=== PATIENT | male | born 1945 | race Caucasian/White ===

== ENCOUNTER → 2018-01-18 13:24 | Outpatient (CLI) | payer MEDICARE, BC, SELFPAY ==
--- NOTE | 2018-01-18 13:24 | DT_ITS ---
This patient was seen during an EMR downtime January 14, 2018 - January 21, 2018. This patient may have a combination of paper and electronic documentation or all paper documentation. All documentation is viewable within the e-chart portion of [facility] for each patient visit.
--- NOTE | 2018-01-18 13:32 | CT_ITS ---
STUDY: CT CHEST WITHOUT CONTRAST REASON FOR EXAM: Male, 72 years old. Screening. RADIATION DOSAGE (If Supplied By Facility): CTDIvol = ( 12.19 ) mGy, DLP = ( 219.42 ) mGycm TECHNIQUE: Transaxial imaging was performed without the administration of intravenous contrast material. Individualized dose optimization techniques were used for this CT. COMPARISON: None. FINDINGS: There is a 4 mm calcified granuloma in the medial right lung base. A 2 mm calcified granuloma as well as a 4 mm granuloma are seen in the right middle lobe. The lungs appear otherwise clear. There is no demonstrated pleural abnormality. Normal heart and pericardium. There are coronary artery calcifications. Calcified lymph nodes in the right hilum and as ago esophageal space. Normal hilar regions. Normal unenhanced pulmonary arteries. There is atherosclerotic calcification of the aortic arch with tortuosity and elongation of the aortic arch and descending thoracic aorta. There are mild degenerative changes of the thoracic spine. There is no demonstrated abnormality of the visualized upper abdomen. CT/CCTA Calcium Scoring IMPRESSION: 1. Atherosclerotic changes of the coronary arteries and thoracic aorta. 2. Old granulomatous disease. Electronically Signed: Jayme Hensley DO at 10:47 EDT Tel [phone], Service support ,
--- NOTE | 2018-01-18 13:46 | CT_ITS ---
STUDY: CT CHEST WITHOUT CONTRAST REASON FOR EXAM: Male, 72 years old. Screening. RADIATION DOSAGE (If Supplied By Facility): CTDIvol = ( 12.19 ) mGy, DLP = ( 219.42 ) mGycm TECHNIQUE: Transaxial imaging was performed without the administration of intravenous contrast material. Individualized dose optimization techniques were used for this CT. COMPARISON: None. FINDINGS: There is a 4 mm calcified granuloma in the medial right lung base. A 2 mm calcified granuloma as well as a 4 mm granuloma are seen in the right middle lobe. The lungs appear otherwise clear. There is no demonstrated pleural abnormality. Normal heart and pericardium. There are coronary artery calcifications. Calcified lymph nodes in the right hilum and as ago esophageal space. Normal hilar regions. Normal unenhanced pulmonary arteries. There is atherosclerotic calcification of the aortic arch with tortuosity and elongation of the aortic arch and descending thoracic aorta. There are mild degenerative changes of the thoracic spine. There is no demonstrated abnormality of the visualized upper abdomen. CT/Limited Chest CT w/CCTA IMPRESSION: 1. Atherosclerotic changes of the coronary arteries and thoracic aorta. 2. Old granulomatous disease. Electronically Signed: Jayme Hensley DO at 10:47 EDT Tel [phone], Service support ,
--- NOTE | 2018-01-21 17:46 | CA.SCORE ---
Calcium Scoring Date of Study:: 01/18/18 Coronary Calcium Scoring: High-resolution computed tomographic imaging of the chest was performed on 01/18/2018 with particular attention paid to the coronary arteries. Images from the examination were analyzed for the presence and extent of coronary artery calcification using the coronary calcium quantification software. The patient tolerated the procedure well. Review of the scores demonstrated evidence of calcification noted in the left main coronary artery, left anterior descending artery, left circumflex artery, and the right coronary artery. The total [place] score was noted to be 1494. This places the patient at greater than 75% tile ranking suggesting extensive plaque burden and a high likelihood of at least one coronary artery vessel having a significant stenosis more than 50% in diameter. Conclusion: Extensive coronary calcification with high plaque burden.
== END ==
PROVIDERS: Family Provider Internal Medicine; PCP Internal Medicine; Visit Provider Internal Medicine
DX: E78.5 Hyperlipidemia, unspecified (principal)
CPT/HCPCS: 75571; 76380

== ENCOUNTER → 2018-01-31 12:48 | Outpatient (CLI) | payer MEDICARE, BC, SELFPAY ==
--- NOTE | 2018-01-31 12:55 | BD_ITS ---
STUDY: DUAL ENERGY X-RAY ABSORPTIOMETRY / DXA REASON FOR EXAM: Male, 72 years old. Long-term use of prednisone. Loss of height. TECHNIQUE: Bone Mineral Density (BMD) measurements of lumbar spine and bilateral hips were obtained. COMPARISON: Comparison is made with prior study dated May 25, 2015. FINDINGS: Lumbar Spine (L1-L4): g/cm2 (1.313) / T-score (0.9) / Z-score (1.5) Findings are suggestive of normal bone density with a low fracture risk. Left Femur Total: g/cm2 (1.027) / T-score (-0.5) / Z-score (0.3) Left Femoral Neck: g/cm2 (0.920) / T-score (-1.2) / Z-score (0.2) Right Femur Total: g/cm2 (0.963) / T-score (-1.0) / Z-score (-0.1) Right Femoral Neck: g/cm2 (0.928) / T-score (-1.1) / Z-score (0.3) The T-Scores on the most recent prior examination were: Lumbar Spine (L1-L4): There has been worsening of bone density since the previous examination. Left Femur Total: which represents an improvement of 1.2%. Right Femur Total: which represents a worsening of 2.2%. BD/Dexa Bone Density Study IMPRESSION: The patient is considered osteopenic as outlined below according to World [place] Organization (WHO) criteria with a moderate fracture risk. There has been worsening of bone density since the previous examination. Reference Information: The T-score is the number of standard deviations above or below the standard which is normal for young adults at their peak bone mineral density. The World Health Organization (WHO) interprets the T-scores as follows: Above -1 Normal bone density Between -1 and -2.5 Osteopenia Equal to / or below -2.5 Osteoporosis As a practical clinical guideline, osteopenia may be graded as follows: Mild -1 through -1.5 Moderate -1.6 through -2.0 Severe -2.1 through -2.4 The Z-score is the number of standard deviations above or below age-matched controls. A Z-score of less than -1.5 would be considered abnormal. References: 1. NIH Osteoporosis and Related Bone Diseases http://www.osteo.org 2. International Society for Clinical Densitometry http://www.iscd.org 3. National Osteoporosis Foundation http://www.nof.org Electronically Signed: Lam Bills MD at 9:58 EDT Tel [phone], Service support ,
== END ==
PROVIDERS: Family Provider Internal Medicine; PCP Internal Medicine; Visit Provider Internal Medicine
DX: Z79.52 Long term (current) use of systemic steroids (principal)
CPT/HCPCS: 77080

== ENCOUNTER → 2018-02-18 06:47 | Outpatient (CLI) | payer MEDICARE, BC, SELFPAY ==
--- NOTE | 2018-02-18 10:02 | STRESSREP ---
Stress Test Report Exercise myocardial perfusion stress test. 73-year-old man with a history of chest pain. Medications: Crestor prednisone losartan amlodipine and aspirin. Stress protocol: Resting EKG demonstrates sinus rhythm with a rate of 61 bpm normal intervals are noted. The patient exercised according to the regular Johan protocol for a total duration of 6 minutes and 30 seconds the maximum heart rate attained was 7 37 bpm which was 93% of maximum predicted heart rate the maximum workload was 7.7 metabolic equivalents. Patient maintained sinus rhythm throughout the recording. Upsloping ST EKG changes only were noted with no meet the criteria for ischemia. The resting blood pressure is 132/80 with a peak blood pressure 190/70 mmHg. No clinical angina was noted the rate pressure product was 20,400. Myocardial perfusion protocol. 11.5 mCi of technetium 99m sestamibi was injected at rest. Patient exercised according to regular Johan protocol for 6 minutes and 30 seconds attaining 93% of maximum predicted heart rate workload of 7.7 metabolic equivalents. At peak exercise 34.1 mCi of technetium 99m sestamibi was injected stress images were obtained stress and rest images were reconstructed and compared in the short axis vertical long and horizontal long axis. Gated images were also obtained pre- Perfusion SPECT analysis: Review of the stress images demonstrate normal uptake of tracer noted in all areas of the myocardium. The resting images similarly demonstrate normal uptake of tracer noted in all areas of the myocardium. No areas of reversibility are noted to suggest ischemia no previous infarct is noted. Gated SPECT analysis: The gated ejection fraction is 59%. Conclusion: Normal exercise myocardial perfusion stress test at a moderate workload. Preserved ejection fraction.
== END ==
PROVIDERS: Family Provider Internal Medicine; PCP Internal Medicine; Visit Provider Internal Medicine
DX: I25.10 Atherosclerotic heart disease of native coronary artery without angina pectoris (principal)
CPT/HCPCS: 78452; 93017; A9500; A4216

== ENCOUNTER → 2018-04-23 10:06 | Outpatient (CLI) | payer MEDICARE, BC, SELFPAY ==
[2018-04-23 10:36] LABS: PSA,Total - Annual Screen < 0.01 ng/mL (0.00-4.00)
== END ==
PROVIDERS: Family Provider Internal Medicine; PCP Internal Medicine; Visit Provider Internal Medicine
DX: Z12.5 Encounter for screening for malignant neoplasm of prostate (principal)
CPT/HCPCS: 36415; 84153; G0103

== ENCOUNTER → 2018-12-23 09:33 | Outpatient (CLI) | payer MEDICARE, BC, SELFPAY ==
--- NOTE | 2018-12-23 10:16 | VDLE_ITS ---
Reason For Study: SWELLING RIGHT LEFT CFV is compressible, spontaneous, phasic, GSV is normal. competent and demonstrates normal CFV is compressible, spontaneous, phasic, augmentation. competent, and demonstrates normal Procedure augmentation. Exam performed in department. FV is compressible, spontaneous, phasic, A preliminary report was called and/or faxed competent and demonstrates normal to Dr Craven. augmentation. POP V is compressible, spontaneous, phasic, competent and demonstrates normal augmentation. T/P Trunk is compressible. PTV is compressible. LT PerV is compressible. Left Gastroc V is NONCOMPRESSIBLE and does not fill with color. Interpretation Summary Acute deep vein thrombosis is noted in the left gastrocnemius vein. The remainder of the left lower extremity deep venous system is patent and compressible. Valvular competence appears intact within the proximal deep venous system on the left . The left greater saphenous vein appears patent and compressible segmentally. Ordering Physician: Kendra Craven Referring Physician: Kendra Craven Performed By: Mallory Gage, ROSALIACS, RVT
== END ==
PROVIDERS: Family Provider Internal Medicine; PCP Internal Medicine; Referring Provider Internal Medicine; Visit Provider Internal Medicine
DX: M79.89 Other specified soft tissue disorders (principal); R42 Dizziness and giddiness
CPT/HCPCS: 93225; 93226; 93971

== ENCOUNTER → 2020-02-05 12:01 | Outpatient (CLI) | payer MEDICARE, BC, SELFPAY ==
--- NOTE | 2020-02-05 12:14 | BD_ITS ---
STUDY: DUAL ENERGY X-RAY ABSORPTIOMETRY / DXA REASON FOR EXAM: Male, 74 years old. Unsure of age of silvio. Pat is 195.3# and 6''1 and quot; a loss of 1.5 and quot; per pat. Past hx of using Fosomax. Uses 10mg of prednisone. Does not exercise. Hx of left humerus and jn clavicle fx. TECHNIQUE: Bone Mineral Density (BMD) measurements of lumbar spine and bilateral hips were obtained. COMPARISON: Comparison is made with prior study dated January 31, 2018. FINDINGS: Lumbar Spine (L1-L4): g/cm2 (1.294) / T-score (0.8) / Z-score (1.4) Findings are suggestive of normal bone density with a low fracture risk. Left Femur Total: g/cm2 (1.000) / T-score (-0.7) / Z-score (0.2) Left Femoral Neck: g/cm2 (0.902) / T-score (-1.3) / Z-score (0.1) Right Femur Total: g/cm2 (0.933) / T-score (-1.2) / Z-score (-0.2) Right Femoral Neck: g/cm2 (0.897) / T-score (-1.3) / Z-score (0.1) The T-Scores on the most recent prior examination were: Lumbar Spine (L1-L4): There has been improvement of bone density since the previous examination. Left Femur Total: which represents a worsening of 2.6%. Right Femur Total: which represents a worsening of 3.1%. BD/Dexa Bone Density Study IMPRESSION: The patient is considered osteopenic as outlined below according to World [place] Organization (WHO) criteria with a low fracture risk. There has been worsening of bone density since the previous examination. Reference Information: The T-score is the number of standard deviations above or below the standard which is normal for young adults at their peak bone mineral density. The World Health Organization (WHO) interprets the T-scores as follows: Above -1 Normal bone density Between -1 and -2.5 Osteopenia Equal to / or below -2.5 Osteoporosis As a practical clinical guideline, osteopenia may be graded as follows: Mild -1 through -1.5 Moderate -1.6 through -2.0 Severe -2.1 through -2.4 The Z-score is the number of standard deviations above or below age-matched controls. A Z-score of less than -1.5 would be considered abnormal. References: 1. NIH Osteoporosis and Related Bone Diseases http://www.osteo.org 2. International Society for Clinical Densitometry http://www.iscd.org 3. National Osteoporosis Foundation http://www.nof.org Electronically Signed: Lam Bills, at 12:56 EDT , Service support ,
== END ==
PROVIDERS: PCP Internal Medicine; Referring Provider Internal Medicine; Visit Provider Internal Medicine
DX: M81.0 Age-related osteoporosis without current pathological fracture (principal)
CPT/HCPCS: 77080

== ENCOUNTER → 2020-06-08 11:16 | Outpatient (CLI) | payer MEDICARE, BC, SELFPAY ==
[2018-02-20 13:18] VITALS: BMI 26.6
== END ==
PROVIDERS: PCP Internal Medicine; Visit Provider Nurse Practitioner Adult Health
DX: N39.0 Urinary tract infection, site not specified (principal)
CPT/HCPCS: 87077; 87086; 87088; 87186

== ENCOUNTER → 2020-06-14 11:10 | Outpatient (CLI) | payer MEDICARE, BC, SELFPAY ==
[2018-02-20 13:18] VITALS: BMI 26.6
[2020-06-14 11:44] LABS: Potassium 4.4 mmol/L (3.5-5.1)
== END ==
PROVIDERS: PCP Internal Medicine; Visit Provider Nurse Practitioner Adult Health
DX: N39.0 Urinary tract infection, site not specified (principal)
CPT/HCPCS: 36415; 84132

== ENCOUNTER → 2021-04-11 08:19 | Outpatient (CLI) | payer MEDICARE, BC, SELFPAY ==
--- NOTE | 2021-04-11 08:21 | CT_ITS ---
INDICATION: HO PROSTATE CA,UTI''S,URINARY CALCULI,ASYMPTOMATIC MICRO HEMATURIA EXAMINATION: CT ABDOMEN AND PELVIS WITHOUT CONTRAST - CT Abdomen And Pelvis W/O Contrast Injection TECHNIQUE: Helically acquired images were obtained of the abdomen and pelvis without oral or IV contrast. A radiation dose optimization technique was used for this scan. IV Contrast dosage and agent: None. Oral contrast: None. COMPARISON: 03/31/2017. FINDINGS: LOWER CHEST: Subtle pleural-based calcification visualized measuring 0.6 cm.. No cardiomegaly or pericardial effusion. LIVER: Homogeneous. No focal mass. Subtle scattered calcifications GALLBLADDER AND BILIARY TREE: No calcified gallstones. No gallbladder distension or wall edema. No intra- or extrahepatic biliary ductal dilation. PANCREAS: No focal cystic or solid mass. The pancreas is atrophic. SPLEEN: Normal size without focal cystic or solid mass. Subtle scattered calcifications suggestive of remote granulomatous disease. ADRENAL GLANDS: No nodules. KIDNEYS AND URETERS: Normal renal size and position. Multiple nonobstructing stones visualized in the left kidney largest of which measures 0.5 cm. Bilateral renal cysts visualized. No hydronephrosis. PERITONEUM: No ascites or free air. No other fluid collection. BOWEL: A small hiatus hernia is seen. No stomach or bowel distension. Scattered distal visualized in the large bowel. No focal inflammatory change. LYMPH NODES: No enlarged mesenteric or retroperitoneal lymph nodes. VESSELS: Aorta is non-dilated. Vascular calcifications seen. URINARY BLADDER: The urinary bladder is decompressed, mild bladder wall thickening is seen. REPRODUCTIVE ORGANS: No pelvic masses. ABDOMINAL WALL: No discrete abdominal or pelvic wall hernia. BONES: No lytic or blastic abnormality. Degenerative bone changes visualized most prominent at L3-L4, where there is a circumferential disc bulge visualized causing moderate to severe narrowing of the spinal canal and bilateral neuroforamina.. CT/Abdomen/Pelvis without Cont IMPRESSION: Nonobstructive renal stones visualized in the left kidney, no evidence of hydronephrosis or hydroureter is seen. Circumferential disc bulge at L4-L5 causing moderate to severe narrowing of the spinal canal and bilateral neuroforamina. Electronically Signed: Harris Morgan MD at 11:15 EDT Tel , Service support ,
== END ==
PROVIDERS: PCP Internal Medicine; Referring Provider Urology; Visit Provider Urology
DX: R31.21 Asymptomatic microscopic hematuria (principal); Z85.46 Personal history of malignant neoplasm of prostate; Z87.440 Personal history of urinary (tract) infections; Z87.442 Personal history of urinary calculi
CPT/HCPCS: 74176

== ENCOUNTER → 2021-05-19 14:48 | Outpatient (CLI) | payer MEDICARE, BC, SELFPAY ==
--- NOTE | 2021-05-19 14:51 | CT_ITS ---
STUDY: CT ABDOMEN AND PELVIS WITH CONTRAST REASON FOR EXAM: Male, 76 years old. ABD PAIN,DIFFUSE RADIATION DOSAGE (If Supplied By Facility): CTDIvol = ( 12 ) mGy, DLP = ( 796.36 ) mGycm TECHNIQUE: Transaxial images were obtained from the dome of the diaphragm to the symphysis pubis without oral contrast. Oral and amp; IV Readi-CAT and amp; 100mL Isovue-300 was administered. Sagittal and coronal images were reconstructed. Individualized dose optimization techniques were used for this CT. COMPARISON: 04/11/2021 FINDINGS: The visualized lung bases are unremarkable. The visualized portions of the heart are within normal limits. Nonspecific fatty attrition of liver without mass or bile duct dilatation. Normal gallbladder and extrahepatic biliary system. Tiny granulomatous calcifications within normal size limits.. Atrophic fatty infiltrated pancreas.. Normal bilateral adrenal glands. Tiny nonobstructing left renal calculus. No evidence for renal obstruction. There is a simple cyst in left kidney. Normal visualized stomach. Normal small intestine. Minor diverticular changes of the descending colon without evidence for acute diverticulitis no evidence for acute appendicitis.. Atherosclerotic changes of the aorta without evidence for aneurysm.. Normal inferior vena cava. Normal retroperitoneum. Diffuse thickening of the bladder nunez possibly on the basis of chronic outlet obstruction.. Postop change status post prostatectomy and lymphadenectomy. Small fat-containing right umbilical hernia.. Lumbar spine demonstrates change CT/Abdomen/Pelvis WITH Contrast IMPRESSION: No evidence for small bowel obstruction or acute appendicitis. Minor diverticular changes of colon without evidence for acute diverticulitis. Tiny nonobstructing left renal calculus Simple cysts in left kidney. Postsurgical changes status post prostatectomy and lymphadenectomy Electronically Signed: Joe Velez MD at 17:20 EDT , Service support ,
[2021-05-19 15:16] LABS: CREATININE FINGERSTICK 1.1 mg/dL (0.70-1.30); EGFR FINGERSTICK > 60.0000 mL/min (>60)
== END ==
PROVIDERS: PCP Internal Medicine; Referring Provider Internal Medicine; Visit Provider Internal Medicine
DX: R10.84 Generalized abdominal pain (principal); I65.29 Occlusion and stenosis of unspecified carotid artery
CPT/HCPCS: 74177; Q9967

== ENCOUNTER → 2021-05-31 09:55 | Outpatient (CLI) | payer MEDICARE, BC, SELFPAY ==
--- NOTE | 2021-05-31 09:59 | CDU_ITS ---
Reason For Study: STENOSIS Rt. Velocities/BP Lt. Velocities/BP Prox CCA 75.5/12.9 cm/sec. Prox CCA 100.2/17.9 cm/sec. Mid CCA 65.1/14.2 cm/sec. Mid CCA 76.9/13.0 cm/sec. Dist CCA 75.5/15.5 cm/sec. Dist CCA 69.5/15.5 cm/sec. Prox ICA 78.5/23.2 cm/sec. Prox ICA 80.6/17.9 cm/sec. Mid ICA 105.5/35.5 cm/sec. Mid ICA 105.1/22.8 cm/sec. Dist ICA 118.5/32.7 cm/sec. Dist ICA 116.2/37.6 cm/sec. Rt. ICA/CCA = 118.5/65.1=1.8. Lt. ICA/CCA = 116.2/76.9=1.5. Prox ECA 184.1/12.9 cm/sec. Prox ECA 106.4/9.3 cm/sec. Rt. Vert. 50.0/10.3 cm/sec. Lt. Vert. 57.0/14.2 cm/sec. Right Extracranial There is homogeneous, smooth atherosclerotic plaque noted in the right common carotid artery. There is heterogeneous, smooth atherosclerotic plaque noted in the right internal carotid artery. There is heterogeneous, irregular atherosclerotic plaque noted in the right external carotid artery. Antegrade flow is noted in the right vertebral artery. There is heterogeneous, smooth atherosclerotic plaque noted in the right bulb. Left Extracranial There is intimal thickening but no significant atherosclerotic plaque noted in the left common carotid artery. There is heterogeneous, irregular atherosclerotic plaque noted in the left internal carotid artery. There is intimal thickening but no significant atherosclerotic plaque noted in the left external carotid artery. Antegrade flow is noted in the left vertebral artery. There is heterogeneous, smooth atherosclerotic plaque noted in the left bulb. VL/Carotid Duplex Ultrasound Interpretation Summary Mild calcific plaque at the proximal right internal carotid artery with less th an 50% stenosis Less than 50% stenosis right external carotid artery Mild irregular plaque at the proximal left internal carotid artery with less th an 50% stenosis Less than 50% stenosis left external carotid artery Patent and antegrade vertebral arteries bilaterally No clinically significant change from the previous examination blood flow scree maria d of May 16, 2016 Ordering Physician: Kendra Craven Referring Physician: Kendra Craven Performed By: Zuly Meza, DAMIR, RVT
== END ==
PROVIDERS: PCP Internal Medicine; Referring Provider Internal Medicine; Visit Provider Internal Medicine
DX: I65.23 Occlusion and stenosis of bilateral carotid arteries (principal); R10.84 Generalized abdominal pain
CPT/HCPCS: 93880

== ENCOUNTER → 2021-12-22 | Outpatient (CLI) | payer MEDICARE, BC, SELFPAY ==
--- NOTE | 2021-12-22 06:34 | MRI_ITS ---
EXAM: MR LUMBAR SPINE WITHOUT INTRAVENOUS CONTRAST CLINICAL INDICATION: LEG WEAKNESS, BACK PAIN, BOWEL AND BLADDER INCONTINENCE TECHNIQUE: Multiplanar and multisequence MR images of the lumbar spine without intravenous contrast. This report was created using [employer] report [employer] technology. COMPARISON: CT abdomen and pelvis May 19, 2021 FINDINGS: VERTEBRAE: Unremarkable. Vertebral body heights are preserved. Normal vertebral bodies and posterior elements. Normal alignment. No spondylolisthesis. There is preservation of the normal lumbar lordosis. SPINAL CORD: Unremarkable. Normal position and signal intensity of the conus medullaris. SOFT TISSUES: Unremarkable. DISCS/SPINAL CANAL/NEURAL FORAMINA: L1-L2: Unremarkable. Normal disc height and morphology. Normal spinal canal and lateral recesses. Normal neuroforamina. L2-L3: No disc protrusion. Facet arthropathy and posterior ligamentous redundancy results in mild narrowing of the left neural foramen. L3-L4: Broad-based disc osteophyte complex, facet arthropathy and ligamentous hypertrophy results in mild spinal and left neural foraminal stenosis and moderate narrowing of the right neural foramen. L4-L5: Broad-based disc protrusion, ligamentous hypertrophy and facet arthropathy results in mild narrowing of the thecal sac and left neural foramen and moderate narrowing of the right neural foramen. L5-S1: No disc space abnormality. Facet arthropathy present. Normal caliber spinal canal and neural foramina. MRI/Spine Lumbar (Routine) IMPRESSION: 1. 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 2. Mild spinal stenosis at L3-4 and L4-5. 3. Multilevel neural foraminal narrowing. Electronically Signed: Aaron Dhillon MD at 9:12 EDT ,
== END | disposition home or self-care (01) ==
PROVIDERS: PCP Internal Medicine; Referring Provider Internal Medicine; Visit Provider Internal Medicine
DX: R29.898 Other symptoms and signs involving the musculoskeletal system (principal)
CPT/HCPCS: 72148

== ENCOUNTER → 2022-01-21 | Outpatient (CLI) | payer MEDICARE, BC, SELFPAY ==
--- NOTE | 2022-01-21 10:31 | US_ITS ---
STUDY: ABDOMINAL ULTRASOUND REASON FOR EXAM: Male, 76 years old. PAIN TECHNIQUE: Transabdominal ultrasound was performed with real-time and static pearce scale imaging. TECHNICAL QUALITY: Adequate. COMPARISON: None. FINDINGS: Liver: The liver measures 16.6 cm. There is increased echogenicity consistent with fatty infiltration. The bile ducts are within normal limits. There is hepatic color flow. The direction of portal flow is hepatopetal. Subcentimeter cyst in the left lobe of liver. Portal vein measurement: Gallbladder: Normal distended gallbladder. The gallbladder wall measures 2 mm. There is a negative sonographic Shafer''s sign. There is no pericholecystic fluid. There are no gallstones. Common Bile Duct (C.B.D.): The common bile duct measures 3 mm. Pancreas: Normal size of the head, body and tail of the pancreas. There is normal echogenicity of the pancreas. There is no demonstrated pancreatic mass or cyst. Spleen: Normal size of the spleen. The spleen measures 11.7 cm. Right Kidney: Normal size of the right kidney. The right kidney measures 11.7 cm. Normal renal cortex. The right cortex measures 1.7 cm. 1.5 cm cyst in the midsection right kidney. There is no right hydronephrosis. Left Kidney: Normal size of the left kidney. The left kidney measures 12.1 cm. Normal renal cortex. The left cortex measures 2.1 cm. 3.5 cm cyst in the midsection left kidney. There is no left hydronephrosis. Aorta: No abdominal aortic aneurysm. I.V.C.: The IVC is patent. There is no ascites. US/Abdomen Complete IMPRESSION: Fatty infiltration of the liver. Electronically Signed: Nish Umanzor MD at 16:40 EDT ,
== END | disposition home or self-care (01) ==
LOC: US 10:15
PROVIDERS: PCP Internal Medicine; Visit Provider Internal Medicine
DX: R10.84 Generalized abdominal pain (principal)
CPT/HCPCS: 76700

== ENCOUNTER → 2022-02-20 | Outpatient (CLI) | payer MEDICARE, BC, SELFPAY | END | disposition home or self-care (01) | LOC: PSN 08:43 | PROVIDERS: PCP Internal Medicine; Referring Provider Internal Medicine; Visit Provider Internal Medicine | DX: R42 Dizziness and giddiness (principal); R55 Syncope and collapse | CPT/HCPCS: 93225; 93226 ==

== ENCOUNTER → 2022-03-03 | Outpatient (CLI) | payer MEDICARE, BC, SELFPAY ==
--- NOTE | 2022-03-03 09:28 | ECHOCS_ITS ---
Reason For Study: Dizziness Procedure This was a 2D Doppler, Color Flow transthoracic echocardiogram. Contrast injection was performed. Exam performed in department. Left Ventricle Normal LV size. Left ventricular systolic function is normal. The estimated ejection fraction is 65 %. No regional wall motion abnormalities noted. Right Ventricle Normal RV size. Normal systolic function. Atria Normal left atrium. Normal right atrium. Mitral Valve Mild focal mitral valve calcification, bileaflet. Mild (1+) eccentric mitral valve insufficiency. Tricuspid Valve Normal tricuspid valve. Mild (1+) tricuspid valve insufficiency. Pulmonary artery systolic pressure is 26 mmHg. Aortic Valve Normal aortic valve. Trisinus/trileaflet aortic valve. Pulmonic Valve Normal pulmonic valve. Great Vessels Normal aortic root. The pulmonary artery is normal size. Normal inferior vena cava. Pericardium/Pleural No pericardial effusion. Medication Diluted definity 1ml given slow IV push to enhance endocardial definition. MMode/2D Measurements & Calculations LVIDd: 5.7 cm IVSd: 0.89 cm Ao root diam: 2.7 cm LVIDs: 3.3 cm LVPWd: 0.87 cm RVDd: 4.4 cm FS: 41.8 % LAV(MOD-bp): 74.1 ml LA A4 area: 21.0 cm2 LA dimension(2D): 4.8 cm LAV(MOD-bp) Indexed: 34.5 ml/m2 LAV(MOD-sp2): 84.6 ml LAV(MOD-sp4): 64.7 ml RA A4 area: 15.9 cm2 Doppler Measurements & Calculations MV E max dhaavl: 82.6 cm/sec Lat Peak E' Dhaval: 9.8 cm/sec Med Peak E' Dhaval: 8.1 cm/sec MV A max dhaval: 73.6 cm/sec E/E' lat: 8.4 E/E' med: 10.2 MV E/A: 1.1 Ao V2 max: 147.3 cm/sec LV V1 max: 113.8 cm/sec PA V2 max: 100.0 cm/sec Ao max P.7 mmHg LV V1 max P.2 mmHg Ao V2 mean: 100.2 cm/sec Ao mean P.5 mmHg Ao V2 VTI: 29.7 cm TR max dhaval: 240.5 cm/sec TR max P.1 mmHg ECHO/Echo Complete W/ Contrast Interpretation Summary Normal LV size. Left ventricular systolic function is normal. The estimated ejection fraction is 65 %. Pulmonary artery systolic pressure is 26 mmHg. Contrast injection was performed. Ordering Physician: Kendra Craven Referring Physician: Kendra Craven Performed By: Patricia Bender, DAMIR, RVT
== END | disposition home or self-care (01) ==
LOC: CVS 09:24
PROVIDERS: PCP Internal Medicine; Referring Provider Internal Medicine; Visit Provider Internal Medicine
DX: R55 Syncope and collapse (principal); R42 Dizziness and giddiness
CPT/HCPCS: 93306; Q9957; A4216; C8929

== ENCOUNTER → 2022-05-03 | Outpatient (CLI) | payer MEDICARE, BC, SELFPAY ==
--- NOTE | 2022-05-03 16:38 | RAD_ITS ---
INDICATION: cad EXAMINATION/TECHNIQUE: X-RAY - XR Chest 2 Views COMPARISON: None. FINDINGS: The lungs are clear. Sternal cerclage wires and vascular clips are present from a prior sternotomy and coronary artery bypass graft procedure (CABG). Tortuous and calcified thoracic aorta. No pleural effusion or pneumothorax. Degenerative changes of the thoracic spine and shoulders. RAD/Chest PA and Lateral IMPRESSION: No acute radiographic abnormalities. Electronically Signed: Dean Gaston MD at 23:55 EDT ,
== END | disposition home or self-care (01) ==
LOC: RAD 16:36
PROVIDERS: PCP Internal Medicine; Referring Provider Internal Medicine Cardiovascular Disease; Visit Provider Internal Medicine Cardiovascular Disease
DX: I25.10 Atherosclerotic heart disease of native coronary artery without angina pectoris (principal); I25.84 Coronary atherosclerosis due to calcified coronary lesion; R93.1 Abnormal findings on diagnostic imaging of heart and coronary circulation
CPT/HCPCS: 71046

== ENCOUNTER 2022-05-12 06:47 | Day surgery (SDC) | payer MEDICARE, BC, SELFPAY ==
[2022-05-11 08:04] VITALS: BMI 26.3
--- NOTE | 2022-05-12 09:33 | CL.D_ITS ---
Patient Name: JONATHAN DENIS Study Date: 05/12/2022 Performing: Rinku Galaviz MD Ht: 73.22 inches 186 cm : 1945 Wt: 201 lbs 91.17 kg Age: 77 Gender: male BSA: 2.16 PROCEDURE(S) PERFORMED DC01-(21654)LHC/COR/LV CLINICAL PROFILE AND INDICATIONS Indications: Suspected CAD Heart Failure: None Stress/Imaging Coronary Calcium Score: Yes Calcium Score: 1440Calcium Score: 1440Stress/Image Study Performed: No CAD Presentations: Other: Fatigue CONCLUSIONS Diffuse coronary artery disease involving the distal right coronary artery and proximal circumflex artery in a nondominant vessel. Preserved left ventricular systolic function. Coronary calcification noted RECOMMENDATIONS Medical therapy DESCRIPTION OF PROCEDURE The patient arrived to the procedure lab. The risks and benefits of the procedure as well as a full description of our services here and current unavailability of surgical backup were fully explained to the patient and/or their significant other prior to the catheterization. The Timeout was completed, verifying the correct patient and procedure. The patient's procedural site was prepped and draped in the usual fashion. Local anesthetic was given subcutaneously to right radial region with Lidocaine 2%. Using a modified Seldinger technique, arterial access was obtained via the right radial artery, a 6Fr sheath was inserted. Right Coronary Artery selective angiography was then performed in multiple views using a 5 Fr. 4.0 [place] catheter. Left Coronary Artery selective angiography was performed in multiple views using a 5 Fr. 4.0 [place] catheter. Left Ventriculography was performed in PATEL projection using a 5 Fr. [place] catheter. LV to AO pullback pressures were then recorded.The arterial sheath was pulled and a TR Band was applied for hemostasis w/ 10ml air CORONARY ANGIOGRAPHY DOMINANCE: Right Dominant LEFT HEART ASSESSMENT Left Ventricular Ejection Fraction: by LV Gram 55 % Normal LV wall motion Normal Left Ventricular systolic function LEFT MAIN: Angiographically normal LEFT ANTERIOR DESCENDING ARTERY: Mild luminal irregularities less than 30% CIRCUMFLEX ARTERY: Diffusely diseased vessel with proximal segment demonstrating approximately 60 to 70% stenosis also involving the first obtuse marginal branch with diffuse distal disease. RIGHT CORONARY ARTERY: Mild luminal irregularities RT PDA: Proximal - Appears to have diffuse disease involving 80% stenosis and extending to the posterior lateral vessel as well. COMPLICATIONS No Complications PROCEDURE MEDICATIONS Versed 1 mg IV Fentanyl 50 mcg IV Oxygen: 2 % FiO2 via nasal cannula Heparin given IA 05/12/2022 08:34:45 Verapamil 2.5mg, Ntg 100mcgs, 3000 units of Heparin given IA 05/12/2022 08:34:45 SUMMARY OF HEMODYNAMIC DATA Time AIR REST ECG 07:15:00 AO 107/54 (75) SA 08:36:30 LV 121/-1, 6 08:43:25 LV 121/0, 5 08:43:33 LV 117/4, 11 08:44:06 LV 114/2, 9 08:44:15 LVp 113/0, 9 08:44:19 AOp 124/53 (80) 08:44:26 Signed By Rinku Galaviz MD On 05/12/2022 09:32:33 Rinku Galaviz MD
== END 2022-05-12 10:50 | disposition home or self-care (01) ==
PROVIDERS: PCP Internal Medicine; Referring Provider Internal Medicine Cardiovascular Disease; Visit Provider Internal Medicine Cardiovascular Disease
DX: I25.10 Atherosclerotic heart disease of native coronary artery without angina pectoris (principal); R53.83 Other fatigue; I10 Essential (primary) hypertension; G47.33 Obstructive sleep apnea (adult) (pediatric); E78.5 Hyperlipidemia, unspecified; Z79.82 Long term (current) use of aspirin; Z79.899 Other long term (current) drug therapy; Z86.718 Personal history of other venous thrombosis and embolism
CPT/HCPCS: 93458; 99152; 99153; J7040; C1769; C1894; Q9967

== ENCOUNTER → 2022-07-04 | Outpatient (CLI) | payer MEDICARE, BC, SELFPAY ==
[2022-07-04 09:00] LABS: Absolute Lymphocyte Count 1.43 X10^3/uL (0.83-4.51); Absolute Neutrophil Count 2.7 X10^3/uL (2.0-7.7); Basophil# 0.02 X10^3/uL; Basophil% 0.4 % (0-1); Eosinophil# 0.04 X10^3/uL; Eosinophils% 0.8 % (0-5); Hematocrit 40.5 % (40-54); Hemoglobin 13.4 g/dL (13.0-16.5); Lymphocyte # 1.43 X10^3/ul (0.83-4.51); Lymphocyte % 29.8 % (19-41); Mean Corp Hgb Conc 33.1 g/dL (32-36); Mean Corpuscular Volume 90.8 fL (80-94); Mean Platelet Vol. 9.6 fl (6.2-12.0); Monocyte# 0.55 X10^3/uL; Monocyte% 11.5 % (0-10); NRBC Flagged by Analyzer 0 % (0-5); Neutrophil # 2.73 X10^3/uL (2.7-7.7); Neutrophil % 56.9 % (47-70); Platelet Count 203 K/mm3 (150-450); RBC Distribution Width CV 13.4 % (11.6-14.6); Red Blood Count 4.46 M/mm3 (4.6-6.2); White Blood Count 4.8 K/mm3 (4.4-11.0)
[2022-07-04 09:13] LABS: Anion Gap 4 (5-15); BUN 25 mg/dL (7-18); BUN/Creat Ratio 20.3 RATIO (10-20); Calcium,Total 9.8 mg/dL (8.5-10.1); Chloride 109 mmol/L (98-107); Creatinine, Serum 1.23 mg/dL (0.70-1.30); EST Glomerular Filtration Rate 60 mL/min (>60); Est Glom Filt Rate - Afr Amer 73 mL/min (>60); Glucose 107 mg/dL (74-106); Potassium 4.1 mmol/L (3.5-5.1); Sodium Level 143 mmol/L (136-145)
--- NOTE | 2022-07-04 17:52 | TILTTABLE_ITS ---
Physician Tilt Table Report Patient's Physicians Primary Care Physician: Kendra Craven Manager Maritime: Rinku Galaviz Indications/Diagnosis: Syncope Procedure Comments: The patient was brought to the noninvasive lab in the postabsorptive nonsedated state. The initial blood pressure was noted to be 178/81 mmHg with a heart rate of 58 bpm. The patient was then placed in the 70 degree upright head up tilt position. Continuous EKG monitoring was performed as well as blood pressure. Patient maintained sinus rhythm throughout the recording with a peak heart rate of 65 bpm and a peak blood pressure of 178/81 mmHg. The lowest blood pressure recorded was 130/65 mmHg. Patient maintained sinus rhythm no symptoms were noted. The patient was then placed back in the recumbent position and continuous EKG and blood pressure measurements were also obtained. Patient remained asymptomatic. Summary: Negative head upright tilt table test.
== END | disposition home or self-care (01) ==
LOC: CVS 08:46
PROVIDERS: PCP Internal Medicine; Referring Provider Internal Medicine; Visit Provider Internal Medicine
DX: I95.1 Orthostatic hypotension (principal); D64.9 Anemia, unspecified; K76.0 Fatty (change of) liver, not elsewhere classified
CPT/HCPCS: 36415; 80048; 85025; 93660; J7040; A4216

== ENCOUNTER → 2022-12-07 | Outpatient (CLI) | payer MEDICARE, BC, SELFPAY | END | disposition home or self-care (01) | LOC: LABSPEC 16:25 | PROVIDERS: PCP Internal Medicine; Referring Provider Urology; Visit Provider Urology | DX: R31.9 Hematuria, unspecified (principal) | CPT/HCPCS: 87077; 87086; 87088; 87186 ==

== ENCOUNTER → 2022-12-14 | Outpatient (CLI) | payer MEDICARE, BC, SELFPAY ==
[2022-12-14 10:01] LABS: BNP,B-Type NATRIURETIC PEPTIDE 38.9 pg/mL (0-100)
[2022-12-14 10:02] LABS: Anion Gap 7 (5-15); BUN 26 mg/dL (7-18); BUN/Creat Ratio 17.2 RATIO (10-20); Calcium,Total 9.8 mg/dL (8.5-10.1); Chloride 111 mmol/L (98-107); Creatinine, Serum 1.51 mg/dL (0.70-1.30); EST Glomerular Filtration Rate 48 mL/min (>60); Est Glom Filt Rate - Afr Amer 58 mL/min (>60); Glucose 136 mg/dL (74-106); Potassium 3.6 mmol/L (3.5-5.1); Sodium Level 146 mmol/L (136-145)
== END | disposition home or self-care (01) ==
LOC: LAB 09:13
PROVIDERS: PCP Internal Medicine; Referring Provider Nurse Practitioner Family; Visit Provider Nurse Practitioner Family
DX: R06.09 Other forms of dyspnea (principal)
CPT/HCPCS: 36415; 80048; 83880

== ENCOUNTER → 2022-12-25 | Outpatient (CLI) | payer MEDICARE, BC, SELFPAY ==
--- NOTE | 2022-12-25 08:49 | RDU_ITS ---
Reason For Study: Disorder of Kidney or Ureter / Renal Insufficiency Right Renal Artery Left Renal Artery Right renal artery ostium Left renal artery ostium 111.0/14.5 105.2/19.4 RSV/EDV. PSV/EDV. Right renal artery proximal Left renal artery proximal PSV/EDV 97.9/13.9 PSV/EDV. 146.2/23.3 . Right renal artery mid 105.2/19.4 Left renal artery mid 124.2/25.5 PSV/EDV. PSV/EDV . Right renal artery distal 90.6/15.7 Left renal artery distal 135.2/21.1 PSV/EDV. PSV/EDV. Right RAR 1.18. Artery appears tortuous. Right Renal Parenchyma Left RAR 1.65. Upper Pole Medula 46.0/13.1 Left Renal Parenchyma PSV/EDV. Left upper pole medulla 31.9/10.9 Right upper pole medulla EDR 0.30 . PSV/EDV . Right upper pole medulla R.I. Left upper pole medulla EDR 0.30 . 0.72 . Left upper pole medulla R.I. 0.66 . Upper [place] Cortx 22.9/6.5 PSV/EDV. UP Cortex 21.8/7.2 PSV/EDV. Right upper pole cortex EDR 0.30 . Left upper pole cortex EDR 0.30 . Right upper pole cortex R.I. 0.72 . Left upper pole cortex R.I. 0.67 . Right lower Pole medulla 42.7/12.0 Left lower Pole medulla 30.2/6.6 PSV/EDV . PSV/EDV . Right lower pole medulla EDR 0.30 . Left lower pole medulla EDR 0.20 . Right lower pole medulla R.I. Left lower pole medulla R.I. 0.78 . 0.72 . Lower Pole Cortx 15.5/4.7 PSV/EDV. Lower Pole Cortex 16.4/6.5 PSV/EDV. Left lower pole cortex EDR 0.30 . Right lower pole cortex EDR 0.40 . Left lower pole cortex R.I. 0.70 . Right lower pole cortex R.I. 0.60 . Left Renal Hilar Right Renal Hilar LT Hilar avg 63.0/16.8 PSV/EDV . Right Hilar avg 85.7/27.2 PSV/EDV. Left hilar acceleration time 20 Right hilar acceleration time 30 m/sec. m/sec. Left Renal Dimensions Right Renal Dimensions Left kidney size 11.61 cm . Right kidney size 11.82 cm . Left cortical dimension 2.04 cm . Right cortical dimension 1.56 cm . Anechoic area measuring approximately 3.76cm x 3.44cm. Aorta Proximal abdominal aorta 1.82 x 1.71 cm . Proximal abdominal aorta peak systolic velocity is 80.9 cm/sec . Distal abdominal aorta 1.74 x 1.70 cm . Distal abdominal aorta peak systolic velocity is 88.8 cm/sec . VL/Renal Artery Duplex Ultrasound Interpretation Summary Right renal artery patent with normal velocities and no evidence of stenosis. Left renal artery patent with normal velocities and no evidence of stenosis. Right renal vein patent Left renal vein patent Right kidney normal in size Left kidney normal in size Ordering Physician: Kendra Craven Referring Physician: Kendra Craven Performed By: Kalyan Chapman, RVT
== END | disposition home or self-care (01) ==
LOC: CVS 08:48
PROVIDERS: PCP Internal Medicine; Referring Provider Internal Medicine; Visit Provider Internal Medicine
DX: N28.9 Disorder of kidney and ureter, unspecified (principal); I10 Essential (primary) hypertension
CPT/HCPCS: 93975

== ENCOUNTER → 2023-02-20 | Outpatient (CLI) | payer MEDICARE, BC, SELFPAY ==
--- NOTE | 2023-02-20 12:56 | BD_ITS ---
STUDY: DUAL ENERGY X-RAY ABSORPTIOMETRY / DXA REASON FOR EXAM: Male, 78 years old. 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 COMPARISON: Comparison is made with prior study dated February 05, 2020. FINDINGS: Lumbar Spine (L1-L4): g/cm2 (1.093) / T-score (0.4) / Z-score (1.5) Findings are suggestive of normal bone density with a low fracture risk. Left Femur Total: g/cm2 (1.003) / T-score (-0.2) / Z-score (0.8) Left Femoral Neck: g/cm2 (0.795) / T-score (-1.0) / Z-score (0.5) Right Femur Total: g/cm2 (0.923) / T-score (-0.7) / Z-score (0.3) Right Femoral Neck: g/cm2 (0.776) / T-score (-1.1) / Z-score (0.4) The T-Scores on the most recent prior examination were: Lumbar Spine (L1-L4): There has been worsening of bone density since the previous examination. Left Femur Total: which represents an improvement of 7.4%. Right Femur Total: which represents an improvement of 6.3%. BD/Dexa Bone Density Study IMPRESSION: The patient is considered osteopenic as outlined below according to World [place] Organization (WHO) criteria with a low fracture risk. There has been improvement of bone density since the previous examination. Reference Information: The T-score is the number of standard deviations above or below the standard which is normal for young adults at their peak bone mineral density. The World Health Organization (WHO) interprets the T-scores as follows: Above -1 Normal bone density Between -1 and -2.5 Osteopenia Equal to / or below -2.5 Osteoporosis As a practical clinical guideline, osteopenia may be graded as follows: Mild -1 through -1.5 Moderate -1.6 through -2.0 Severe -2.1 through -2.4 The Z-score is the number of standard deviations above or below age-matched controls. A Z-score of less than -1.5 would be considered abnormal. References: 1. NIH Osteoporosis and Related Bone Diseases www osteo.org 2. International Society for Clinical Densitometry www iscd.org 3. National Osteoporosis Foundation www nof.org Electronically Signed: Lam Bills MD at 9:07 EDT ,
== END | disposition home or self-care (01) ==
PROVIDERS: PCP Internal Medicine; Referring Provider Internal Medicine; Visit Provider Internal Medicine
DX: M85.80 Other specified disorders of bone density and structure, unspecified site (principal); Z79.52 Long term (current) use of systemic steroids
CPT/HCPCS: 77080

== ENCOUNTER → 2023-05-21 | Outpatient (CLI) | payer MEDICARE, BC, SELFPAY ==
[2023-05-21 15:17] LABS: PSA,Total- Diagnostic < 0.01 ng/mL (0.0-4.0)
== END | disposition home or self-care (01) ==
LOC: LAB 13:48
PROVIDERS: PCP Internal Medicine; Referring Provider Urology; Visit Provider Urology
DX: C61 Malignant neoplasm of prostate (principal)
CPT/HCPCS: 36415; 84153

== ENCOUNTER → 2023-06-14 | Outpatient (CLI) | payer MEDICARE, BC, SELFPAY ==
--- NOTE | 2023-06-14 08:12 | MRI_ITS ---
STUDY: MRI LUMBAR SPINE WITHOUT CONTRAST REASON FOR EXAM: Male, 78 years old. Back pain. History of prostate carcinoma. TECHNIQUE: Standardized fat and water weighted pulse sequences were obtained in the sagittal and axial planes. COMPARISON: MRI lumbar spine without contrast 12/22/2021. FINDINGS: T12-L1: (Sagittal only). Normal T12 inferior endplate. Mild recent fracture across the upper L1 vertebral body with slight anterior wedging and central compression fracture more towards the right side. This accounts for the bone edema underneath the superior endplate. Normal disc height, hydration and morphology. Normal central canal and bilateral intervertebral neural foramen. Normal lumbar lordosis. There is no substantial scoliosis. Normal conus medullaris that terminates at the T11-T12 disc space level but not included on this scan. This is well visualized on the comparison MRI of 12/22/2021. L1-2: Normal endplates. Normal disc height, hydration and morphology. Normal bilateral facet joints. Normal central canal and bilateral lateral recesses. Normal bilateral intervertebral neural foramina. L2-3: Normal L2 inferior endplate. Mild old central compression fracture in the left side of the L3 superior endplate is unchanged. Normal disc height. Minimal degenerative anterolisthesis of L2 on L3 is a new finding. Moderate bilateral degenerative facet arthropathy, left greater than right. Normal central canal and bilateral lateral recesses. Normal bilateral intervertebral neural foramina. L3-4: Moderate left L4 superior endplate compression fracture with very minimal residual edema underneath suggesting healing compression fracture. The irregularity in the right side of the L3 inferior endplate with Modic type II changes have increased. Moderately pronounced disc space height narrowing. Prominent and broad ventral extradural defect due to posterior bulging annulus, greater towards the intervertebral neural foramina. This accounts for the moderate stenosis of the right intervertebral neural foramen and mild stenosis of the left intervertebral neural foramen. L4-5: Mild Modic type II degenerative vertebral marrow fat infiltration underneath the right side of the vertebral endplates. Minimal disc space height narrowing. Mild ventral extradural defect due to posterior bulging annulus. Moderately pronounced right degenerative facet arthropathy and moderate left degenerative facet arthropathy. Normal central canal. Mild stenosis of right lateral recess. Normal left lateral recess. Moderate stenosis of the right intervertebral neural foramen and mild stenosis of the left intervertebral neural foramen. L5-S1: Normal endplates. Normal disc height, hydration and morphology. Mild bilateral degenerative facet arthropathy. Normal central canal and bilateral lateral recesses. Normal bilateral intervertebral neural foramina. Normal visualized sacral ala. Normal visualized paraspinous soft tissue structures. MRI/Spine Lumbar (Routine) IMPRESSION: 1. Mild recent compression fracture across the upper L1 vertebral body and minimal right-sided central compression fracture. This is a new finding. This is feasible for kyphoplasty if patient has debilitating back pain referrable to this site. 2. Moderate left L4 superior endplate compression fracture with very minimal residual edema suggesting healing compression fracture. This is a new finding when compared to 12/22/2021. 3. Moderate stenosis of the right L4-L5 intervertebral neural foramen, mild stenosis of the left L4-L5 intervertebral neural foramen and small posterior bulging annulus are unchanged. 4. Mild old central compression fracture of the left side of the L3 superior endplate is unchanged. Minimal degenerative anterolisthesis of L2 on L3 is a new finding. 5. No MRI evidence of lumbar extruded disc fragment. Electronically Signed: Vinay Rosenthal MD at 9:50 EDT ,
== END | disposition home or self-care (01) ==
LOC: MRI 07:57
PROVIDERS: PCP Internal Medicine; Referring Provider Internal Medicine; Visit Provider Internal Medicine
DX: M54.9 Dorsalgia, unspecified (principal)
CPT/HCPCS: 72148

== ENCOUNTER → 2023-06-22 | Outpatient (CLI) | payer MEDICARE, BC, SELFPAY ==
--- NOTE | 2023-06-22 14:20 | BONBX_PTH ---
PATIENT: JOANTHAN DENIS LOC: [facility] U#:[id number] AGE/SX: 78/M ROOM: RE06/22/[address]: Dr. Joe Swain MD : 1945 BED: DIS: 06/22/2023 SPEC #: [id number] RECD: 06/25/23 10:25 STATUS: THAD MILADY #: [id number] JOHN: 06/22/23 14:[address]: Joe Swain DEPT: SURGICAL PATHOLOGY RECD BY: Nathalia Lewis ENTERED: 06/25/23 10:26 SP TYPE: Bone OTHR DR: Dr. Kendra Craven MD [facility] Tissues: Vertebra, NOS Procedures: Decalcification bone/plaque Surgery Specimen Level V HEADER OPERATION: Kyphoplasty at L4 PRE-OP DIAGNOSIS: Age-related osteoporosis with current pathological fracture, vertebra TISSUE SUBMITTED: Body of L4, bone MICROSCOPIC DIAGNOSIS L4 vertebral bone, biopsy: Consistent with organizing fracture site. Trilineage hematopoiesis. No evidence of malignancy. See comment. AM:scar 06/26/2023 COMMENT Clinical correlation is suggested. MICROSCOPIC DESCRIPTION Slides are reviewed. GROSS DESCRIPTION Received is one container labeled with the patient's name and not further designated. The specimen consists of a cylindrical fragment of humphreys tissue measuring 0.7 x 0.2 x 0.1 cm. The specimen is totally submitted in one cassette after decalcification. / AM:scar 06/25/2023 TC:5 CPT: 57074, 40377
== END | disposition home or self-care (01) ==
LOC: LABSPEC 16:10
PROVIDERS: PCP Internal Medicine; Visit Provider Anesthesiology Pain Medicine
DX: M80.08XA Age-related osteoporosis with current pathological fracture, vertebra(e), initial encounter for fracture (principal)
CPT/HCPCS: 88307; 88311

== ENCOUNTER 2023-08-09 09:30 | Outpatient (RCR) | payer MEDICARE, BC, SELFPAY ==
--- NOTE | 2023-07-11 10:28 | HP.PTEVAL_ITS ---
Patient's Visit Information Visit Information Visit Information: JONATHAN DENIS is a 78 year old M referred to Physical Therapy by Dr. Kendra Craven MD with a diagnosis of COMPRESSION FRACTURE ,LBP. Date of Evaluation: 07/11/23 Physical Therapist: Quinten Bonilla, PT, Cert MDT, OCS Visit Plan Frequency: 2x /Week Duration: 4 Weeks Plan: L4 COMPRESSION S/P KYPHOPLASTY 06/16 PT INTERVTIONS DLS ,POSTURAL EX'S ,LE FLEXABLITY ,WB ACTIVIES AND FUNCTIONAL STRENGTHENING Subjective Subjective: This 78 y/o male presents to physical therapy with compression fractures lumbar. Patient Fell March at [facility] on side. In May had severe back pain . Patient had MRI showed compression fracture L4 . Referred to Pain management and had kyphoplasty on Jun 22 at [facility]. Patient ahs symmetrical back pain. Medication tramadol and occasional naproxen. Patient has osteoporosis from long standing prednisone 20 years. Maysthesis gravis. Patient denies paresthesia/tingling-. Coughing /sneezing -. Bowel/bladder -. Patient has difficulty sleeping on by -pap. Patient conidtion affects QOL and function. Patient goals to get stronger. SOCIAL: VOCATION: retired Pain Bilateral Back: Pain Intensity (Out of 10): 2 Pain Intensity Range: 10 Objective Objective: POSTURE: mild forward posture trunk flexed GAIT: reciprocal pattern mild forward posture FLEXABILITY: hamstrings mod tight SYMMTRIES: align PALPATION: unremarkable MMT: quads/hams 4/5 ,hip flexion 4-/5 ,ankle 4/5 LUMBAR ROM: flexion mod loss ,extension mod loss ,side glides mod loss Special Tests L/S Slump test left side: Negative L/S Slump test right side: Negative L/S Left Straight Leg Raise: Negative L/S Right Straight Leg Raise: Negative Balance/Special Test Scores Oswestry Low Back Score: 25 Goals Goal 1:: I with HEP for Back Goal Time Frame: 4-6 Weeks Goal 2:: Patient to improve lumbar ROM for function of recovery to tie shoes Goal Time Frame: 4-6 Weeks Goal 3:: Patient to demonstrate 50% improvement with decrease pain and improve function Goal Time Frame: 4-6 Weeks Goal 4:: Patient to improve Back oswestry score by 5 points or > to improve QOL and function Goal Time Frame: 4-6 Weeks Rehabilitation Potential Physical Therapy Diagnosis: This patient had L4 compression fracture s/p kyphoplasty with decrease ROM ,weakness ,decrease posture affects ADLS and housework tasks Rehabilitation Potential: Good Anticipated Interventions Patient/Client Instruction: Educate patient on: Condition and Plan of Care For the Purpose of:: To decrease pain, To increase ROM, To improve muscle performance and motor function, To improve ability to perform ADL's, To increase tolerance to activity/condition/position, To improve ability of physical actions for home/community/work/leisure, To improve health of tissue, To decrease soft tissue restriction and To increase flexibility/ROM Therapeutic Exercise to Include: Strength training, Endurance training, Balance training, Postural training, Flexibilty training and Dynamic Lumbar Stabilizat ion For the Purpose of:: To decrease pain, To increase ROM, To improve muscle performance and motor function, To increase tolerance to activity/condition/position, To improve ability of physical actions for home/community/work/leisure, To improve health of tissue and To decrease soft tissue restriction Text: Thank you for the opportunity to evaluate your patient. For Medicare and Medicare HMO plans, please review the plan of care and approve it. It will need to be FAXED BACK to us at [phone] for Medicare purposes. For Medicare only, by signing this I certify the plan of care. Please let me know if there are questions or concerns regarding this plan of care. Physician Signature: Date:
--- NOTE | 2023-08-09 10:31 | HP.PTDCSUM ---
Discharge Summary D/C summary: It has been my pleasure to treat JONATHAN DENIS referred by Dr. Kendra Craven MD, with the diagnosis of COMPRESSION FRACTURE ,LBP for a total of 8 visit(s). Discharge Date: 08/09/23 Please see the following information for a summary of their discharge status. Subjective Subjective: Doing better overall need to improve enduance Pain Bilateral Back: Pain Intensity (Out of 10): 1 Overall Improvement % Improvement: 75 Objective Objective/Function: POSTURE: mild forward posture trunk flexed GAIT: reciprocal pattern mild forward posture FLEXABILITY: hamstrings mod tight SYMMTRIES: align PALPATION: unremarkable MMT: quads/hams 4/5 ,hip flexion 4-/5 ,ankle 4/5 LUMBAR ROM: flexion mod loss ,extension mod loss ,side glides mod loss Goals Goal 1:: I with HEP for Back Goal Progress: Goal Met Goal 2:: Patient to improve lumbar ROM for function of recovery to tie shoes Goal Progress: Goal Met Goal 3:: Patient to demonstrate 50% improvement with decrease pain and improve function Goal Progress: Goal Met Goal 4:: Patient to improve Back oswestry score by 5 points or > to improve QOL and function Goal Progress: Goal Met Plan Plan: D/C D/C Information Discharge Comments: HEP PLAN TO JOIN MEMBERSHIP AT d/c sentence: If there are questions or concerns regarding this patient's physical therapy, please feel free to call me at [phone]. Thank you for the referral of this patient. Sincerely, Quinten Bonilla, PT, Cert MDT, OCS Balance/Gait/Functional tests Balance/Special Test Scores Oswestry Low Back Score: 5 Improvement % Improvement: 75
== END 2023-08-09 17:17 | disposition home or self-care (01) ==
LOC: PT 09:30
PROVIDERS: PCP Internal Medicine; Referring Provider Internal Medicine; Visit Provider Internal Medicine
DX: M54.50 Low back pain, unspecified (principal); S32.040D Wedge compression fracture of fourth lumbar vertebra, subsequent encounter for fracture with routine healing
CPT/HCPCS: 97110; 97162; 97530

== ENCOUNTER → 2023-10-23 | Outpatient (CLI) | payer MEDICARE, BC, SELFPAY ==
--- NOTE | 2023-10-23 11:14 | VDLE_ITS ---
Reason For Study: Left leg swelling RIGHT LEFT CFV is compressible, spontaneous, phasic, GSV is normal. competent and demonstrates normal CFV is compressible, spontaneous, phasic, augmentation. competent, and demonstrates normal Procedure augmentation. This is a venous duplex using B-mode, color FV is compressible, spontaneous, phasic, flow and spectral Doppler. competent and demonstrates normal Exam performed in department. augmentation. A preliminary report was called and/or faxed POP V is compressible, spontaneous, phasic, to Dr. Craven. competent and demonstrates normal augmentation. T/P Trunk is compressible. PTV is compressible. LT PerV is compressible. Nonvascularized structure is noted in the left popliteal fossa that measures 2.46 x 1.22 x 5.17 cm. VL/Venous Duplex US, Unilateral Interpretation Summary Deep veins of the left lower extremity are patent and compressible segmentally. There is no evidence of left lower extremity deep vein thrombosis. The left great saphenous vein pedro pablo ears patent and compressible segmentally. Nonvascularized structure is noted in the left popliteal fossa that measures 2. 46 x 1.22 x 5.17 cm. Ordering Physician: Kendra Craven Referring Physician: Kendra Craven Performed By: Dainelle Apple RVT
== END | disposition home or self-care (01) ==
PROVIDERS: PCP Internal Medicine; Referring Provider Internal Medicine; Visit Provider Internal Medicine
DX: R60.0 Localized edema (principal)
CPT/HCPCS: 93971

== ENCOUNTER → 2023-12-07 | Outpatient (CLI) | payer MEDICARE, BC, SELFPAY ==
--- NOTE | 2023-12-07 10:38 | VDLE_ITS ---
Reason For Study: EDEMA RIGHT LEFT CFV is compressible, spontaneous, phasic, GSV is normal. competent and demonstrates normal CFV is compressible, spontaneous, phasic, augmentation. competent, and demonstrates normal Procedure augmentation. This is a venous duplex using B-mode, color FV is compressible, spontaneous, phasic, flow and spectral Doppler. competent and demonstrates normal Exam performed in department. augmentation. A preliminary report was called and/or faxed POP V is compressible, spontaneous, phasic, to Dr. Craven @ 11:02 AM @ [phone]. competent and demonstrates normal augmentation. T/P Trunk is compressible. PTV is compressible. LT PerV is compressible. VL/Venous Duplex US, Unilateral Interpretation Summary Deep veins of the left lower extremity are patent and compressible segmentally. There is no evidence of left lower extremity deep vein thrombosis. Valvular competence appears intac t within the proximal deep venous system on the left . The left great saphenous vein appears patent a nd compressible segmentally. The right common femoral vein is patent and compressible . Ordering Physician: Kendra Craven Referring Physician: Kendra Craven Performed By: Zuly Meza, DAMIR, RVT
== END | disposition home or self-care (01) ==
LOC: CVS 10:38
PROVIDERS: PCP Internal Medicine; Referring Provider Internal Medicine; Visit Provider Internal Medicine
DX: R60.0 Localized edema (principal)
CPT/HCPCS: 93971

== ENCOUNTER → 2024-05-22 | Outpatient (CLI) | payer MEDICARE, BC, SELFPAY ==
[2024-05-22 10:29] LABS: PSA,Total- Diagnostic < 0.01 ng/mL (0.0-4.0)
== END | disposition home or self-care (01) ==
LOC: LAB 09:25
PROVIDERS: PCP Internal Medicine; Referring Provider Nurse Practitioner; Visit Provider Nurse Practitioner
DX: C61 Malignant neoplasm of prostate (principal)
CPT/HCPCS: 36415; 84153

== ENCOUNTER → 2024-12-08 | Outpatient (CLI) | payer MEDICARE, BC, SELFPAY | END | disposition home or self-care (01) | LOC: LABSPEC 16:03 | PROVIDERS: PCP Internal Medicine; Referring Provider Urology; Visit Provider Urology | DX: N30.00 Acute cystitis without hematuria (principal) | CPT/HCPCS: 87077; 87086; 87088; 87186 ==

== ENCOUNTER 2025-04-10 10:35 | Outpatient (CLI) | payer MEDICARE, BC, SELFPAY ==
[2025-04-10 10:53] LABS: Hematocrit 46.2 % (40-54); Hemoglobin 15.1 g/dL (13.0-16.5); Immature Granulocytes Count 0.020 X10^3/uL (0.0-0.0); Mean Corp Hgb Conc 32.7 g/dL (32-36); Mean Corpuscular Volume 90.4 fL (80-94); Mean Platelet Vol. 10.5 fl (6.2-12.0); NRBC Flagged by Analyzer 0 % (0-5); Platelet Count 214 K/mm3 (150-450); RBC Distribution Width CV 13.3 % (11.6-14.6); RBC Distribution Width SD 44.0 fl (35.1-43.9); Red Blood Count 5.11 M/mm3 (4.6-6.2); White Blood Count 4.3 K/mm3 (4.4-11.0)
[2025-04-10 11:05] LABS: Color, Urine Yellow (Yellow); Glucose, Dipstick Normal (Normal); Ketone-Dipstick Negative (Negative); Leukocyte Esterase-Dipstick Negative /ul (Negative); Nitrite-Dipstick Negative (Negative); Occult Blood-Urine Negative /ul (Negative); Protein-Dipstick Negative (Negative); Specific Gravity, Urine 1.025 (1.002-1.030); Urine Bilirubin Dipstick Negative (Negative)
[2025-04-10 11:23] LABS: Creatinine, Urine (random) 117.00 mg/dL (39.00-259.00); Microalbumin,Random Urine < 12.0 mg/L (<20 mg/L)
[2025-04-10 11:25] LABS: Mucous, Urine 1+ /hpf (<or=2+); Red Blood Cells-Urine 0-5 SEEN /hpf (0-5); Squamous Epithelial Cells - UA 0-5 SEEN /hpf (0-5)
[2025-04-10 11:27] LABS: AST(SGOT) 30 U/L (<=37); Alanine Aminotransfer ALT/SGPT 26 U/L (<=46); Albumin, Serum 4.3 g/dL (3.4-4.8); Alkaline Phosphatase 98 U/L (40-129); Anion Gap 11 (5-15); BUN 17 mg/dL (4-19); BUN/Creat Ratio 17.4 RATIO (10-20); Calcium,Total 9.6 mg/dL (7.6-11.0); Carbon Dioxide 23.8 mmol/L (21.0-32.0); Chloride 107 mmol/L (98-108); Globulin 2.1 g/dL (2.2-4.2); Glucose 107 mg/dL (70-99); Potassium 4.2 mmol/L (3.3-5.1)
== END 2025-04-10 23:59 | disposition home or self-care (01) ==
LOC: LABSPEC 10:36
PROVIDERS: PCP Internal Medicine; Referring Provider Internal Medicine; Visit Provider Internal Medicine
DX: E11.9 Type 2 diabetes mellitus without complications (principal); Z79.4 Long term (current) use of insulin; E78.5 Hyperlipidemia, unspecified
CPT/HCPCS: 80053; 81001; 82043; 82570; 85025; 87086; 87088

== ENCOUNTER → 2025-05-25 | Outpatient (CLI) | payer SELFPAY ==
[2025-05-25 13:08] LABS: SERUM TEARS COLLECTION SPECIMEN PROCESSED
== END | disposition home or self-care (01) ==
PROVIDERS: PCP Internal Medicine; Referring Provider Ophthalmology; Visit Provider Ophthalmology
DX: H04.123 Dry eye syndrome of bilateral lacrimal glands (principal)

== ENCOUNTER 2025-07-20 09:36 | Outpatient (CLI) | payer BC, MEDICARE, SELFPAY ==
[2025-07-20 10:39] LABS: Hematocrit 44.6 % (40-54); Hemoglobin 14.9 g/dL (13.0-16.5); Immature Granulocytes Count 0.020 X10^3/uL (0.0-0.0); Mean Corp Hgb Conc 33.4 g/dL (32-36); Mean Corpuscular Volume 88.5 fL (80-94); Mean Platelet Vol. 10.3 fl (6.2-12.0); NRBC Flagged by Analyzer 0 % (0-5); Platelet Count 229 K/mm3 (150-450); RBC Distribution Width CV 13.5 % (11.6-14.6); RBC Distribution Width SD 43.6 fl (35.1-43.9); Red Blood Count 5.04 M/mm3 (4.6-6.2); White Blood Count 4.8 K/mm3 (4.4-11.0)
[2025-07-20 13:01] LABS: AST(SGOT) 34 U/L (<=37); Alanine Aminotransfer ALT/SGPT 29 U/L (<=46); Albumin, Serum 4.4 g/dL (3.4-4.8); Alkaline Phosphatase 85 U/L (40-129); Anion Gap 11 (5-15); BUN 17 mg/dL (4-19); BUN/Creat Ratio 16.3 RATIO (10-20); Calcium,Total 9.8 mg/dL (7.6-11.0); Carbon Dioxide 22.4 mmol/L (21.0-32.0); Chloride 106 mmol/L (98-108); Globulin 2.2 g/dL (2.2-4.2); Glucose 117 mg/dL (70-99); Potassium 4.0 mmol/L (3.3-5.1)
[2025-07-20 13:30] LABS: PSA,Total - Annual Screen < 0.02 ng/mL (0.02-4.00)
== END 2025-07-20 23:59 | disposition home or self-care (01) ==
LOC: CIMLAB 09:37
PROVIDERS: PCP Internal Medicine; Visit Provider Internal Medicine
DX: E78.5 Hyperlipidemia, unspecified (principal); Z12.5 Encounter for screening for malignant neoplasm of prostate
CPT/HCPCS: 36415; 80053; 84153; 85025; G0103

== ENCOUNTER → 2025-07-23 | Outpatient (CLI) | payer BC, MEDICARE, SELFPAY ==
[2025-07-23 15:46] LABS: Cholesterol 143 mg/dL (<=200); Low Density Lipoprotein Calc. 67 mg/dL; Triglycerides 98 mg/dL; Very Low Density Lipoprotein 20 mg/dL (5-40); cholesterol:hdl ratio screen 2.45
== END | disposition home or self-care (01) ==
LOC: CIMLAB 11:41
PROVIDERS: PCP Internal Medicine; Referring Provider Internal Medicine; Visit Provider Internal Medicine
DX: E11.9 Type 2 diabetes mellitus without complications (principal)
CPT/HCPCS: 36415; 80061